=== PATIENT | male | born 1960 | race Caucasian/White ===

== ENCOUNTER 2017-06-21 23:29 | Emergency (ER) | payer MEDICARE, MEDICAID ==
[~2017-06-21] VITALS: Ht 165.1 cm; Wt 75.0 kg
[~2017-06-21 23:29] MED LIST: AMLO5TAB2 PO; AZEL137S11 NS; CEPH-512 PO; CLIN-77 PO; ELET40TA9 PO; FLUN25SP NS; OXYC-474 PO; RANI150C4 PO
[2017-06-21 23:39] VITALS: BP 179/106; PULSE 81; RESP 18; O2SAT 96
[2017-06-22 00:03] LABS: BASOPHILS % (AUTO) 0.4 % (0-3); EOSINOPHILS % (AUTO) 1.7 % (0-5); MONOCYTES % (AUTO) 8.6 % (4-12); Mean Corpuscular Hemoglobin 30.6 pg (27.0-35.0); Mean Corpuscular Volume 88.4 fL (81-100); NEUTROPHILS % (AUTO) 80.7 % (40-74); Platelet Count 270 bil/L (150-400)
--- NOTE | 2017-06-22 00:35 | ED.REPORT ---
HPI-Abd Pain M 40 and Over Date of Service Jun 22, 2017 ED Provider: Anthony Hampton MD This is a 56 year old male with past medical history of lumbar fusion, neurogenic bladder and hypertension, who presents the the emergency department for vomiting. Patient reports he's been having vomiting 4-5 times daily for the last 2 weeks. He reports this occurs whenever he gets very nauseated and vomits every time he eats. He feels fine without eating. He denies any blood in his vomit. He has associated abdominal pain which he says he feels all throughout his abdomen except for the center. He said 2 weeks ago he had a UTI and was given ciprofloxacin for 5 days. Patient has been using self catheter for last 15 years for neurogenic bladder. Patient said he did have some chest pain with difficulty breathing that went away after burping. He reports feeling much more gassy than usual. He denies fevers, chills, diarrhea. He has a history of kidney stones, but mentions this does not feel similar. He went to [facility] 2 days ago for the same and said they gave him 2 bags of fluid while he was there. Nursing Notes Stated Complaint: ABDOMINAL PAIN/TROUBLE BREATHING Chief Complaint: Male Abdominal Pain Nursing Notes Reviewed: Yes Allergies: Coded Allergies: Sulfa (Sulfonamide Antibiotics) (Verified Allergy, Severe, 08/17/16) methadone (Verified Allergy, Intermediate, VISION BLURRY, 08/17/16) barium iodide (Verified Allergy, Unknown, VOMITING, 08/17/16) gabapentin (Verified Adverse Reaction, Intermediate, "IT MADE MY HEAD WEIRD", 08/17/16) Scheduled Amlodipine (Amlodipine) 5 Mg Tablet 5 MG PO DAILY Cefuroxime Axetil (Cefuroxime) 500 Mg Tablet 500 MG PO BID Cephalexin (Keflex) 500 Mg Capsule 1,000 MG PO Q12H Clindamycin (Clindamycin) 150 Mg Capsule 450 MG PO Q8H Ranitidine (Ranitidine) 150 Mg Capsule 150 MG PO DAILY Scheduled PRN Eletriptan HBr (Relpax) 40 Mg Tablet 40 MG PO PRN Headache Oxycodone (Roxicodone) 5 Mg Tablet 10 MG PO Q6H PRN PRN For Pain Miscellaneous Medications Azelastine HCl (Azelastine HCl) 137 Mcg/0.137 Ml [place].pump 137 MCG NS Flunisolide (Flunisolide) 25 Ml [place] 25 ML NS General Time Seen by MD: 00:05 Chief Complaint Other (Vomiting) Hx Obtained From: Patient Sudden in Onset?: No Past Medical History Past Medical History Neurogenic Bladder Chronic Back pain Hypertension Past Surgical History Multiple back surgeries with spinal fusion Smoking History Never Smoker Social History Alcohol Use: "Social" Drug Use: THC Review of Systems Constitutional: Denies: Chills, Fever Respiratory: Reports: Shortness of breath Cardiovascular: Reports: Chest pain GI: Reports: Abdominal pain, Nausea, Vomiting, Denies: Diarrhea, Hematemesis, Melena Male: Reports Incontinence (Patient with neurogenic bladder, self caths) Musculoskeletal: Reports: Back pain (chronic) Complete sys rev & neg: except as marked. Physical Exam Initial Vital Signs Vital Signs (First) Date Time Temp Pulse Resp B/P Pulse Ox O2 Delivery O2 Flow Rate FiO2 06/21/17 23:39 36.6 81 18 179/106 96 Room Air Initial VS: Reviewed Head / Eyes: Atraumatic, Normocephalic ENT: Mucous membranes moist, Conjunctiva normal, No scleral icterus Extremities: Vascular intact, Neuro intact, No swelling Skin: Warm, Dry, No cyanosis Neurologic: Alert, Oriented, Nonfocal Psychiatric: Mood/affect normal, Behavior normal, Normal thought content General/Constitutional: Awake, Alert, No acute distress, Not toxic appearing Respiratory / Chest: Breath sounds NL, Breath sounds = bilat, No respiratory distress, No rales Cardiovascular: Heart rate NL, Regular rhythm, Heart sounds NL, No murmurs Abdomen: McBurney's non-tender, BS normoactive Tenderness/Guarding/Rebound: Positive: Tender LLQ... (Mild), Tender LUQ... ( Moderate) Negative Ethel sign Interpretation & Diagnostics Lab Results Interpretation Result Diagram: 06/21/17 2345 06/21/17 2345 Test 06/21/17 23:45 06/22/17 01:35 White Blood Count 8.3th/mm3 (3.8-10.1) Red Blood Count 4.90mil/mm3 (4.40-5.80) Hemoglobin 15.0g/dL (13.8-17.2) Hematocrit 43.3% (41.0-50.0) Mean Corpuscular Volume 88.4fL (81-100) Mean Corpuscular Hemoglobin 30.6pg (27.0-35.0) Mean Corpuscular Hemoglobin Concent 34.6% (32.0-37.0) Red Cell Distribution Width 13.2% (12.3-15.4) Platelet Count 270bil/L (150-400) Neutrophils (%) (Auto) 80.7% (40-74) Lymphocytes (%) (Auto) 8.5% (14-46) Monocytes (%) (Auto) 8.6% (4-12) Eosinophils (%) (Auto) 1.7% (0-5) Basophils (%) (Auto) 0.4% (0-3) Hold Purple Top Tube Received (Received) Hold Blue Top Tube Received (Received) Sodium Level 143mEq/L (134-144) Potassium Level 3.7mEq/L (3.5-5.2) Chloride Level 104mEq/L (97-108) Carbon Dioxide Level 20mmol/L (18-29) Blood Urea Nitrogen 12mg/dL (6-24) Creatinine 0.81mg/dL (0.76-1.27) Estimat Glomerular Filtration Rate 105mL/min (>59) Glucose Level 121mg/dL (60-99) Lactic Acid Level 1.6mmol/L (0.4-2.0) Calcium Level 9.7mg/dL (8.5-10.1) Total Bilirubin 1.8mg/dL (0.0-1.2) Aspartate Amino Transf (AST/SGOT) 19U/L (0-50) Alanine Aminotransferase (ALT/SGPT) 20U/L (0-44) Alkaline Phosphatase 70U/L (25-150) Total Protein 7.2g/dL (6.4-8.4) Albumin 4.6g/dL (3.4-5.0) Lipase 63U/L (13-60) Hold [place] Top Tube Received (Received) Hold [place] Top Tube Received (Received) Urine Color Dark yellow (YELLOW) Urine Appearance Cloudy (CLEAR,HAZY) Urine pH 5.5 (5.0-8.0) Urine Specific Depue 1.035 (1.003-1.035) Urine Protein Tracemg/dL (NEG,TRACE) Urine Glucose (UA) Negativemg/dL (NEGATIVE) Urine Ketones Negativemg/dL (NEGATIVE) Urine Occult Blood Negative (NEGATIVE) Urine Nitrite Negative (NEGATIVE) Urine Bilirubin Negative (NEGATIVE) Urine Urobilinogen Normalmg/dL (NORMAL) Urine Leukocyte Esterase Small (NEGATIVE) Urine RBC 0-2/hpf (0-2) Urine WBC >50/hpf (0-5) Urine Epithelial Cells Many/hpf (NONE-MOD) Urine Crystals None seen (NONE SEEN) Urine Bacteria Moderate/hpf (NONE-FEW) Urine Hyaline Casts None/lpf (NONE) Urine Granular Casts None seen (NONE SEEN) Urine Waxy Casts None seen (NONE SEEN) Urine Red Blood Cell Casts None seen (NONE SEEN) Urine White Blood Cell Casts None seen (NONE SEEN) Urine Mucus Present (None Seen) Urine Trichomonas None seen (NONE SEEN) Urine Yeast None (NONE SEEN) Urinalysis Comment None Urine Culture Reflexed Indicated Re-Eval/Medical Decision Med Decision/Clinical Course This is a 56 year old male with past medical history of lumbar fusion, neurogenic bladder and hypertension, who presents the the emergency department for vomiting and abdominal pain for the last couple of weeks. Symptoms are exacerbated with food. On exam, patient had moderate left upper quadrant tenderness. CBC, CMP and lipase unremarkable except for mildly elevated total bilirubin of 1.8. ALT, AST and alkaline phosphatase within normal limits. UA shows WBC > 50 and many bacteria. Patient does not seem to have an emergent cause for his pain, but rather UA consistent with UTI. Immediate abdominal ultrasound for cholecystitis not indicated as patient is not having RUQ pain, has negative Shipman's sign and has normal labs. If this doesn't resolve, outpatient imaging may be necessary. Recommend follow up with PCP within the next week. Patient was given IV protonix, 2g IV rocephin and 1L NS in the ED. He should continue antibiotics for 2 weeks. Counseled Regarding: Diagnosis, Lab results, Need for follow-up, When/why to return to ED Discharge & Departure Primary Impression: UTI (urinary tract infection) Urinary tract infection type: acute cystitis Hematuria presence: without hematuria Qualified Code: N30.00 - Acute cystitis without hematuria Disposition: Home Vital Signs - All Vital Signs Date Time Temp Pulse Resp B/P Pulse Ox O2 Delivery O2 Flow Rate FiO2 06/22/17 03:01 74 16 168/107 97 06/21/17 23:39 36.6 81 18 179/106 96 Room Air )( All Prior VS Reviewed: Yes Condition: Stable Patient Instructions: Urinary Tract Infection in Men (ED) Additional Instructions: You have a urinary tract infection based off of urine analysis. You should take antibiotics for 2 weeks as prescribed. If you start to develop fevers ( temperature greater than 100.4 F) associated with your symptoms, or if you see blood in your stool or vomit, return back to the emergency department. Referrals: Tyrel Vazquez MD (PCP) Attending Statement The patient was seen and examined together with Dr. Moy, and I agree with the history, exam and plan as outlined in the note above. copies to: Tyrel Vazquez MD, Malik A DO Jun 22, 2017 00:35 Anthony Hampton MD Jun 22, 2017 04:46
[2017-06-22] MEDS ORDERED: Pantoprazole 4 mg/mL 10 mL Inj IVPUSH ONE (01:05)
[2017-06-22] MEDS ORDERED: 0.9% Sodium Chloride 1,000 ML IV ONE (01:05)
[2017-06-22] MEDS ORDERED: HYDROmorphone 0.5 mg/0.5 mL iSecure Syringe IVPUSH PRN (01:05)
[2017-06-22 01:45] LABS: APPEARANCE,URINE CLOUDY (CLEAR,HAZY); COLOR,URINE DARK YELLOW (YELLOW); OCCULT BLOOD,URINE NEGATIVE (NEGATIVE); PH,URINE 5.5 (5.0-8.0); UROBILINOGEN,URINE NORMAL (NORMAL)
[2017-06-22] MEDS ORDERED: cefTRIAXone Inj 2,000 MG in Dextrose 5% Minibag Plus 50 ML IV ONE (02:05)
[2017-06-22] MEDS ORDERED: CEFU500T61 PO (02:51)
[2017-06-22 03:01] VITALS: BP 168/107; PULSE 74; RESP 16; O2SAT 97
[2017-06-23] MEDS ORDERED: ONDA4TAB12 SL (11:16)
== END 2017-06-22 03:02 | disposition home or self-care (01) ==
LOC: SED 23:29
DX: N30.00 Acute cystitis without hematuria (principal); I10 Essential (primary) hypertension; Z98.890 Other specified postprocedural states; Z88.2 Allergy status to sulfonamides; Z88.5 Allergy status to narcotic agent; Z88.8 Allergy status to other drugs, medicaments and biological substances
CPT/HCPCS: 36415; 80053; 81000; 83605; 83690; 85025; 87086; 96361; 96365; 96375; 99285; J0696; J7030; S0164

== ENCOUNTER 2017-06-23 08:58 | Observation (INO) | payer MEDICARE, MEDICAID ==
[~2017-06-23] VITALS: Ht 165.1 cm; Wt 71.5 kg
[~2017-06-23 08:58] MED LIST changes: +CEFU500T61 PO
[2017-06-23 09:11] VITALS: BP 181/122; PULSE 79; RESP 18; O2SAT 100
--- NOTE | 2017-06-23 09:27 | ED.REPORT ---
[facility]-General Illness Date of Service Jun 23, 2017 ED Provider: Mundo Luna MD Pt is a 56 y/o male w/ a hx of neurogenic bladder and recurrent UTIs, HTN, chronic back pain, presenting to the ED c/o recurrence of nausea and vomiting. The patient has been vomiting 4-5 times daily for the last 4 weeks after eating. He feels fine when he isn't eating. Pt c/o associated mild diffuse abdominal pain. The patient has been using a self catheter for the last 15 years for neurogenic bladder and does get recurrent UTIs. He denies fevers, chills, diarrhea. hematemesis. The patient was last seen here on 06/21/17 at which time lab studies were obtained and demonstrated CBC with stable HCT and no leukocytosis. CMP was unremarkable though total bilirubin was mildly elevated at 1.8. Lipase was not significantly elevated. UA showed >50 WBC and many bacteria and therefore he was started on Cefuroxime after being given 1g of Rocephin in the ED. He saw his PCP yesterday and has been seen at [facility] for this twice within the past week. The patient's constant vomiting after eating or drinking has caused him to be so weak he is unable to walk. He has no prior diagnosis of gastroparesis. The patient takes 5 mg Oxycodone 1-2 TID-QID. He is able to pass gas although his last BM was yesterday only a small amount of diarrhea. The patient does smoke marijuana regularly but he stopped after being told to by providers at [facility] a few days ago. The patient had an abd/pelvis CT scan at [facility] which was reportedly negative. Nursing Notes Stated Complaint: VOMITING Chief Complaint: Male Abdominal Pain Nursing Notes Reviewed: Yes Allergies: Coded Allergies: Sulfa (Sulfonamide Antibiotics) (Verified Allergy, Severe, 08/17/16) methadone (Verified Allergy, Intermediate, VISION BLURRY, 08/17/16) barium iodide (Verified Allergy, Unknown, VOMITING, 08/17/16) gabapentin (Verified Adverse Reaction, Intermediate, "IT MADE MY HEAD WEIRD", 08/17/16) Scheduled Amlodipine (Amlodipine) 5 Mg Tablet 5 MG PO DAILY Cefuroxime Axetil (Cefuroxime) 500 Mg Tablet 500 MG PO BID Scheduled PRN Eletriptan HBr (Relpax) 40 Mg Tablet 40 MG PO PRN Headache Ondansetron ODT (Ondansetron ODT) 4 Mg Tab.rapdis 4 MG SL Q4-6H PRN PRN For Nausea Oxycodone (Roxicodone) 5 Mg Tablet 10 MG PO Q6H PRN PRN For Pain Miscellaneous Medications Azelastine HCl (Azelastine HCl) 137 Mcg/0.137 Ml [place].pump 137 MCG NS Flunisolide (Flunisolide) 25 Ml [place] 25 ML NS General Time Seen by MD: 09:25 Chief Complaint Vomiting Hx Obtained From: Patient Arrived By: Walk-in Onset Occurred: More than a week ago... (2 weeks) Symptom Duration: Intermittent Location: : Abdomen Quality: Aching Radiation: : Does not radiate Severity: Current: Mild Severity: Maximum: Mild Recent Healthcare: Recent doctor visit, Recent testing, Previous diagnosis, Prior workup Similar Sx Previous: Yes Past Medical History Past Medical History Neurogenic Bladder Chronic Back pain Hypertension Past Surgical History Multiple back surgeries with spinal fusion Smoking History Never Smoker Social History Alcohol Use: "Social" Drug Use: THC Ambulatory Status Independent Review of Systems Full Review of Systems Constitutional: Reports: Weakness - generalized, Denies: Chills, Fever GI: Reports: Abdominal pain, Diarrhea, Nausea, Vomiting, Denies: Hematemesis Complete sys rev & neg: except as marked. Physical Exam Vital Signs Vital Signs Date Time Temp Pulse Resp B/P Pulse Ox O2 Delivery O2 Flow Rate FiO2 06/23/17 11:36 36.8 91 16 145/89 98 Room Air 06/23/17 10:56 36.8 84 16 156/111 99 Room Air 06/23/17 09:11 36.8 79 18 181/122 100 Room Air Initial VS: Reviewed, Vital signs abnormal Head / Eyes: Atraumatic, Normocephalic ENT: Mucous membranes moist, Conjunctiva normal Neck: Full range of motion Respiratory: Breath sounds normal, Clear to auscultation, No respiratory distress Cardiovascular: Regular rate & rhythm, Heart sounds normal, Intact distal pulses Extremities: Vascular intact, Neuro intact, No swelling Skin: Warm, Dry, No cyanosis Neurologic: Alert, Oriented, Nonfocal Psychiatric: Mood/affect normal, Behavior normal, Normal thought content General/Constitutional: Awake, Alert, No acute distress, Cooperative, Not toxic appearing Appearance / Presentation: Positive: Ill appearing/not toxic, Uncomfortable Abdomen: Atraumatic, Soft, No guarding, No rebound, No distention, No palpable mass Tenderness/Guarding/Rebound: Positive: Tender diffuse (mild) Interpretation & Diagnostics Lab Results Interpretation Result Diagram: 06/23/17 0941 06/23/17 0941 Test 06/23/17 09:41 White Blood Count 8.5th/mm3 (3.8-10.1) Red Blood Count 4.96mil/mm3 (4.40-5.80) Hemoglobin 15.4g/dL (13.8-17.2) Hematocrit 44.4% (41.0-50.0) Mean Corpuscular Volume 89.5fL (81-100) Mean Corpuscular Hemoglobin 31.0pg (27.0-35.0) Mean Corpuscular Hemoglobin Concent 34.7% (32.0-37.0) Red Cell Distribution Width 12.9% (12.3-15.4) Platelet Count 266bil/L (150-400) Neutrophils (%) (Auto) 84.1% (40-74) Lymphocytes (%) (Auto) 7.8% (14-46) Monocytes (%) (Auto) 6.3% (4-12) Eosinophils (%) (Auto) 0.9% (0-5) Basophils (%) (Auto) 0.5% (0-3) Sodium Level 143mEq/L (134-144) Potassium Level 3.7mEq/L (3.5-5.2) Chloride Level 102mEq/L (97-108) Carbon Dioxide Level 18mmol/L (18-29) Blood Urea Nitrogen 11mg/dL (6-24) Creatinine 0.92mg/dL (0.76-1.27) Estimat Glomerular Filtration Rate 90mL/min (>59) Glucose Level 133mg/dL (60-99) Lactic Acid Level 3.8mmol/L (0.4-2.0) Calcium Level 10.0mg/dL (8.5-10.1) Magnesium Level 1.9mg/dL (1.6-2.6) Total Bilirubin 2.0mg/dL (0.0-1.2) Aspartate Amino Transf (AST/SGOT) 23U/L (0-50) Alanine Aminotransferase (ALT/SGPT) 27U/L (0-44) Alkaline Phosphatase 71U/L (25-150) Total Protein 7.5g/dL (6.4-8.4) Albumin 4.5g/dL (3.4-5.0) Lipase 57U/L (13-60) Re-Eval/Medical Decision Med Decision/Clinical Course Pt is a 56 y/o male w/ a hx of neurogenic bladder and recurrent UTIs, HTN, chronic back pain, presenting to the ED c/o recurrence of nausea and vomiting. The patient has been vomiting 4-5 times daily for the last 4 weeks after eating. He feels fine when he isn't eating. Pt c/o associated mild diffuse abdominal pain. The patient has been using a self catheter for the last 15 years for neurogenic bladder and does get recurrent UTIs. He denies fevers, chills, diarrhea. hematemesis. The patient was last seen here on 06/21/17 at which time lab studies were obtained and demonstrated CBC with stable HCT and no leukocytosis. CMP was unremarkable though total bilirubin was mildly elevated at 1.8. Lipase was not significantly elevated. UA showed >50 WBC and many bacteria and therefore he was started on Cefuroxime after being given 1g of Rocephin in the ED. He saw his PCP yesterday and has been seen at [facility] for this twice within the past week. The patient's constant vomiting after eating or drinking has caused him to be so weak he is unable to walk. He has no prior diagnosis of gastroparesis. The patient takes 5 mg Oxycodone 1-2 TID-QID. He is able to pass gas although his last BM was yesterday only a small amount of diarrhea. The patient does smoke marijuana regularly but he stopped after being told to by providers at [facility] a few days ago. The patient had an abd/pelvis CT scan at [facility] which was reportedly negative. Here in the emergency department the patient is somewhat chronically ill- appearing and is constantly retching into an emesis bag. His abdominal examination reveals no guarding or rigidity and bowel sounds are present. Obtained records from [facility] recent visit dated 06/02/17 presented similar complaints of nausea and vomiting. CT scan at that time evidence of diverticular disease without diverticulitis and bladder wall thickening. Remainder of that CT scan reported as unremarkable. Meds given: IVF, Zofran, Haldol 2 mg IV Labs notable as below: CBC: Unremarkable CMP: unremarkable Total bilirubin of 2.0 Lactic acid elevated at 3.8 Thereafter, patient reported improvement in his symptoms though stated he was not comfortable going home, that he would be back in the emergency department again and that he needed to be admitted to the hospital until he could keep down food and fluids. Patient was discussed with admitting hospitalist and we discussed the patient's desire to be admitted to the hospital. We have even and several antiemetics and IV fluids here in the emergency department continues to state that he is severely nauseated and he does not feel comfortable going home. I have reviewed his outpatient records and I see no indication to repeat his CT scan today. His presentation is most consistent with cannabis hyperemesis syndrome though I also suspect that there is a degree of decreased gastric emptying due to his chronic oxycodone use. There are no findings suggestive of any acute surgical process or small bowel obstruction and I do not feel that repeat imaging studies are not immediately indicated. He does have elevated lactic acid which is consistent with dehydration. While we are reluctant to admit this gentleman he is strongly requesting to be admitted and has had multiple recent ER visits. He will therefore be admitted for further observation, treatment of his nausea and vomiting and IV fluids. I have counseled him to stop smoking marijuana and that he would likely benefit from managing his chronic pain with non-opiate modalities. Patient was transferred in stable condition. Time of Eval: 10:15 Re-Evaluation/Progress Note: The patient is requesting to be admitted as he feels he is too weak at this point to perform regular tasks and because he can't eat. Time of Eval: 11:11 Re-Evaluation/Progress Note: Pt rechecked. Feeling a little bit better after Haldol. Will try PO trial. Discussed consult with hospitalist. Consultation #1: Referral / Consult Name: Virgil Fish Consulted With: Hospitalist Call Returned at: 10:39 [employer] Librarian: Agrees with eval, Agrees with plan Note: Declines admission at this time. Requests we attempt to PO challenge the patient. If fails then will admit. Consultation #2: Referral / Consult Name: Virgil Fish Consulted With: Hospitalist Call Returned at: 11:28 [employer] Librarian: Will see patient, Agrees with eval, Agrees with plan, Accepts admit Counseled Regarding: Diagnosis, Lab results, Need for admission Discharge & Departure Primary Impression: Nausea and vomiting Vomiting type: cyclical vomiting Vomiting Intractability: unspecified Qualified Code: G43.A0 - Cyclical vomiting, not intractable Additional Impressions: Failure of outpatient treatment Elevated lactic acid level Dehydration Disposition: ADMITTED TO HOSPITAL Discharge Condition All VS Reviewed: Yes Condition: Stable Referrals: Tyrel Vazquez MD (PCP) Scribe Attestation Portions of this note were transcribed by Kevon Dominguez. I, Dr. Luna personally performed the history, physical exam and medical decision-making; I reviewed and confirmed the accuracy of the information in the transcribed note. copies to: Tyrel Vazquez MD, Beck O MD Jun 23, 2017 09:27 KEVON DOMINGUEZ Jun 23, 2017 09:48
[2017-06-23] MEDS ORDERED: 0.9% Sodium Chloride 1,000 ML IV ONE ×2 (09:41→14:10)
[2017-06-23] MEDS ORDERED: Ondansetron 2 mg/mL 2 mL Inj IVPUSH ONE (09:45)
[2017-06-23] MEDS ORDERED: Haloperidol 5 mg/mL Inj IVPUSH ONE (10:20)
[2017-06-23] MEDS ORDERED: Alum-Mag Hydrox-Simeth 30 mL Suspension PO PRN ×2 (10:20→14:10)
[2017-06-23 10:30] LABS: BASOPHILS % (AUTO) 0.5 % (0-3); EOSINOPHILS % (AUTO) 0.9 % (0-5); MONOCYTES % (AUTO) 6.3 % (4-12); Mean Corpuscular Volume 89.5 fL (81-100); NEUTROPHILS % (AUTO) 84.1 % (40-74); Platelet Count 266 bil/L (150-400)
[2017-06-23 10:56] VITALS: BP 156/111; PULSE 84; RESP 16; O2SAT 99
[2017-06-23 10:59] LABS: Magnesium 1.9 mg/dL (1.6-2.6)
[2017-06-23] MEDS ORDERED: ONDA4TAB12 SL (11:16)
[2017-06-23 11:36] VITALS: BP 145/89; PULSE 91; RESP 16; O2SAT 98
[2017-06-23] MEDS ORDERED: MetoCLOpramide 5 mg/mL 2 mL Inj IVPUSH PRN (11:55)
[2017-06-23 12:10] VITALS: BP 145/89; PULSE 91; RESP 16; O2SAT 98
--- NOTE | 2017-06-23 13:15 | NUR ---
Admit to room 250-1 Pt arrived via stretcher. able to stand and transfer into bed indep Arrived at 1215. SO at bedside. 1235 pt went to bathroom and straight cathed self with 14f straight cath, produced 500 ml jass urine. Ordered 14f coude from central supply for future straight caths. Addendum: 06/23/17 at 1406 by MILDRED YAP RN notified of arrival on floor 1315
[2017-06-23] MEDS ORDERED: Ondansetron 2 mg/mL 2 mL Inj IVPUSH PRN (14:10)
[2017-06-23] MEDS ORDERED: Polyethylene Glycol (PEG) 17 Gm Powder PO PRN (14:10)
--- NOTE | 2017-06-23 14:22 | PCM.HPMED ---
Subjective Date of Service Jun 23, 2017 Primary Provider: Admitting Physician: Virgil Fish Primary Care Physician: Tyrel Vazquez MD Attending Physician: Virgil Fish Chief Complaint: nausea, vomiting History of Present Illness: 56 year old male with history of hypertension, chronic back pain and degenerative disk disease with multiple back surgeries as well as chronic neurogenic bladder (presumably due to his degenerative disk disease) requiring self-cath and recurrent UTIs as a result presents with complaint of intractable nausea and vomiting. He says his symptoms started about 4 weeks ago but seemed to subside for about couple of weeks before becoming severely worse over the past 4-5 days. He used to smoke marijuana but says stopped smoking about one week ago after he was told it may be contributing to his symptoms. He has been seen in the ED 3 times over the past 4 days (at [facility] initially and twice at our ED). He also saw his PCP who apparently started him on antibiotics for presumed UTI. He denies any prior such episodes with prior UTI's or any history of GI issues. He denies any recent travel or sick contacts. He denies any focal abdominal pain although says has diffuse abdominal tenderness to palpation because of recurrent vomiting. He denies any hematemesis or coffee ground emesis. He denies any diarrhea or constipation although his last BM was 2 days ago. He denies any melena or hematochezia. He says vomiting occur only when he eats or drinks anything but his vomiting is fairly constant. He reports occasional chills after vomiting but no fever. He thinks he may have lost some weight in recent days. In ED he received 2mg of Haldol along with Zofran and says his nausea and vomiting seem much improved now. Review of Systems: Constitutional: Negative, except as otherwise mentioned in the history above. Ophthalmologic: Negative, except as otherwise mentioned in the history above. Cardiovascular: Negative, except as otherwise mentioned in the history above. Respiratory: Negative, except as otherwise mentioned in the history above. Gastrointestinal: Negative, except as otherwise mentioned in the history above. Genitourinary: Negative, except as otherwise mentioned in the history above. Musculoskeletal: Negative, except as otherwise mentioned in the history above. Neurological: Negative, except as otherwise mentioned in the history above. Psychiatric: Negative, except as otherwise mentioned in the history above. Hematologic/Lymphatic: Negative, except as otherwise mentioned in the history above. Allergic/Immunologic: Negative, except as otherwise mentioned in the history above. Allergies Coded Allergies: Sulfa (Sulfonamide Antibiotics) (Verified Allergy, Severe, 08/17/16) methadone (Verified Allergy, Intermediate, VISION BLURRY, 08/17/16) barium iodide (Verified Allergy, Unknown, VOMITING, 08/17/16) gabapentin (Verified Adverse Reaction, Intermediate, "IT MADE MY HEAD WEIRD", 08/17/16) Home Medications Cefuroxime Axetil 500 Mg PO BID Amlodipine 5 Mg PO DAILY Eletriptan HBr 40 Mg PO PRN Headache Oxycodone 10 Mg PO Q6H PRN Azelastine HCl 137 Mcg NS Flunisolide 25 Ml NS Ondansetron ODT 4 Mg SL Q4-6H PRN Exam Vital Signs & I/O Vital Sign- Last 8 Hours Date Time Temp Pulse Resp B/P Pulse Ox O2 Delivery O2 Flow Rate FiO2 06/23/17 12:10 36.8 91 16 145/89 98 Room Air 06/23/17 11:36 36.8 91 16 145/89 98 Room Air 06/23/17 10:56 36.8 84 16 156/111 99 Room Air 06/23/17 09:11 36.8 79 18 181/122 100 Room Air Lab & Micro Results Laboratory Tests Test 06/23/17 09:41 White Blood Count 8.5th/mm3 (3.8-10.1) Red Blood Count 4.96mil/mm3 (4.40-5.80) Hemoglobin 15.4g/dL (13.8-17.2) Hematocrit 44.4% (41.0-50.0) Mean Corpuscular Volume 89.5fL (81-100) Mean Corpuscular Hemoglobin 31.0pg (27.0-35.0) Mean Corpuscular Hemoglobin Concent 34.7% (32.0-37.0) Red Cell Distribution Width 12.9% (12.3-15.4) Platelet Count 266bil/L (150-400) Neutrophils (%) (Auto) 84.1% (40-74) Lymphocytes (%) (Auto) 7.8% (14-46) Monocytes (%) (Auto) 6.3% (4-12) Eosinophils (%) (Auto) 0.9% (0-5) Basophils (%) (Auto) 0.5% (0-3) Sodium Level 143mEq/L (134-144) Potassium Level 3.7mEq/L (3.5-5.2) Chloride Level 102mEq/L (97-108) Carbon Dioxide Level 18mmol/L (18-29) Blood Urea Nitrogen 11mg/dL (6-24) Creatinine 0.92mg/dL (0.76-1.27) Estimat Glomerular Filtration Rate 90mL/min (>59) Glucose Level 133mg/dL (60-99) Lactic Acid Level 3.8mmol/L (0.4-2.0) Calcium Level 10.0mg/dL (8.5-10.1) Magnesium Level 1.9mg/dL (1.6-2.6) Total Bilirubin 2.0mg/dL (0.0-1.2) Aspartate Amino Transf (AST/SGOT) 23U/L (0-50) Alanine Aminotransferase (ALT/SGPT) 27U/L (0-44) Alkaline Phosphatase 71U/L (25-150) Total Protein 7.5g/dL (6.4-8.4) Albumin 4.5g/dL (3.4-5.0) Lipase 57U/L (13-60) Result Diagram: 06/23/1741 06/23/17 0941 PMH Hypertension, Chronic back pain Degenerative disk disease Neurogenic bladder (presumably due to his degenerative disk disease) requiring self-cath Recurrent UTIs Surgical History Multiple back surgeries Family History Two uncles with heart disease. Father in his 70's from unknown cancer. Mother has skin cancer Social History Hx Alcohol Use: Yes (VERY RARE) Hx Substance Use: Yes (marijuana) Smoking Status: Never Smoker Exam Vital Signs Vital Sign - Last Date Time Temp Pulse Resp B/P Pulse Ox O2 Delivery O2 Flow Rate FiO2 06/23/17 12:10 36.8 91 16 145/89 98 Room Air General: Alert, Oriented X3, Cooperative, No Acute Distress Head: Normal Eyes: PERRLA, EOMI, Scleral Anicteric Nose: Mucous Membr Moist/[place] Mouth: Mucous Membr Moist/[place] Neck: Supple Chest & Lungs: Chest Wall Normal, Clear to auscultation & percussion Cardiovascular: Regular Rate/Rhythm Pulses: NL carotid, radial, femoral, DP, PT Abdomen: Tender (mild and diffuse), Non-distended, Normoactive bowel tones, Soft Extremities: No cyanosis/clubbing/edma bilat Skin: Other (no ulcer/rash) Neurological: Grossly Neurologically Intact, Cranial Nerves 2-12 Intact, Normal Speech Lab and Diagnostics Result Diagram: 06/23/1741 06/23/17 0941 Assessment & Plan 56 year old male with history of hypertension, chronic back pain and degenerative disk disease with multiple back surgeries as well as chronic neurogenic bladder (presumably due to his degenerative disk disease) requiring self-cath and recurrent UTIs as a result presents with complaint of intractable nausea and vomiting. # Acute intractable nausea and vomiting, present on admission. - Unclear etiology. ? if due to gastroparesis - Per our ED report: "Obtained records from [facility] recent visit dated 06/02/17 presented similar complaints of nausea and vomiting. CT scan at that time evidence of diverticular disease without diverticulitis and bladder wall thickening. Remainder of that CT scan reported as unremarkable." - If symptoms persist here will consider repeating CT - For now continue with supportive care including IVF, anti-emetics, and pain control with IV Morphine as needed - Start clear liquid diet and advance as tolerated - Consider GI consult vs gastric emptying study if symptoms do not improve # Acute lactic acid elevation, present on admission - Presumably from ongoing n/v - IVF and repeat labs to ensure resolution # Mildly elevated Bilirubin - Repeat CMP labs in AM # History of hypertension. - Continue with home dose Amlodipine # Chronic back pain - Continue with supportive care and home pain meds # History of neurogenic bladder - Continue with self cath # History of recurrent UTI's - Recheck UA to ensure UTI now contributing current symptoms. Expected length of hospital stay is less than 2 midnights and likely 1-2 days GI Prophylaxis: Proton Pump Inhibitor Resuscitation Status: CPR: Attempt Resuscitation (discussed and verified with patient) Virgil Fish Jun 23, 2017 14:22
--- NOTE | 2017-06-23 17:45 | NUR ---
Pt asking to discharge Pt had CL diet for lunch, caused some pain, discomfort in mid abd region, amb in halls and settled down. Had another chicken broth and pt reports no pain/discomfort after this. Suggested pt stay overnight to assess nausea. diet adv to MARTINEZ knapp and will continue to advance if tolerates for breakfast. pt agreed with plan, SO at bedside and aware.
--- NOTE | 2017-06-23 19:07 | NUR ---
ZOHRA explained and signed. Copy of ZOHRA and Medicare self administered medication information given to pt.
[2017-06-23 19:32] LABS: APPEARANCE,URINE CLEAR (CLEAR,HAZY); COLOR,URINE YELLOW (YELLOW); OCCULT BLOOD,URINE TRACE (NEGATIVE); PH,URINE 5.5 (5.0-8.0); UROBILINOGEN,URINE NORMAL (NORMAL)
[2017-06-23 19:56] VITALS: BP 151/96; PULSE 85; RESP 16; O2SAT 96
[2017-06-24 05:16] VITALS: BP 140/86; PULSE 83; RESP 17; O2SAT 96
--- NOTE | 2017-06-24 06:40 | NUR ---
Migraine Pt. c/o migraine upon shift start, paged, new order of prn imitrex administered,effective, pt. denies N/V/abd pain throughout the shift, c/o back pain, administered prn oxycodone with a state of relief, VSS afebrile, hourly checks and all needs attended.
[2017-06-24] MEDS ORDERED: Pantoprazole 40 mg ER24 Tablet PO SCH (07:30)
[2017-06-24 07:59] LABS: Magnesium 1.9 mg/dL (1.6-2.6)
--- NOTE | 2017-06-24 08:10 | PCM.DIMED ---
Discharge Instructions Date of Service Jun 24, 2017 Dates of Hospitalization Jun 23, 2017 at 11:53 Discharge Diagnosis Discharge Diagnosis # Acute intractable nausea and vomiting, present on admission. Resolved - Unclear etiology. # Acute lactic acid elevation, present on admission. resolved. # History of hypertension. Stable. # Chronic back pain. Stable. # History of neurogenic bladder. Stable. # History of recurrent urinary tract infections (UTI's). Urinalysis during this hospitalization without any evidence of active UTI Diet Discharge Diet: Low fat, Low Sodium, Heart Healthy Activity Discharge Activity: No restrictions Call your provider Call your provider for: Fever or Chills, Shortness of breath, Bleeding, Vomitting, Excessive diarrhea Patient Instructions Patient Instructions Seek immediate medical attention if any new or worsening signs or symptoms occur. Follow-up plan 1. Followup with primary care provider this coming week Follow-up Provider: Tyrel Vazquez MD, Masoud Jun 24, 2017 08:09
--- NOTE | 2017-06-24 08:13 | PCM.DC.MED ---
Discharge Summary Date of Service Jun 24, 2017 Dates of Hospitalization Date of Hospital Admission Jun 23, 2017 at 11:53 Date of Discharge: Jun 24, 2017 Providers: Admitting Physician: Virgil Fish Primary Care Physician: Tyrel Vazquez MD Attending Physician: Virgil Fish Diagnosis at Time of Discharge Diagnosis at Time of Discharge # Acute intractable nausea and vomiting, present on admission. Resolved - Unclear etiology. # Acute lactic acid elevation, present on admission. resolved. # History of hypertension. Stable. # Chronic back pain. Stable. # History of neurogenic bladder. Stable. # History of recurrent urinary tract infections (UTI's). Urinalysis during this hospitalization without any evidence of active UTI Brief History 56 year old male with history of hypertension, chronic back pain and degenerative disk disease with multiple back surgeries as well as chronic neurogenic bladder (presumably due to his degenerative disk disease) requiring self-cath and recurrent UTIs as a result presents with complaint of intractable nausea and vomiting. He says his symptoms started about 4 weeks ago but seemed to subside for about couple of weeks before becoming severely worse over the past 4-5 days. He used to smoke marijuana but says stopped smoking about one week ago after he was told it may be contributing to his symptoms. He has been seen in the ED 3 times over the past 4 days (at [facility] initially and twice at our ED). He also saw his PCP who apparently started him on antibiotics for presumed UTI. He denies any prior such episodes with prior UTI's or any history of GI issues. He denies any recent travel or sick contacts. He denies any focal abdominal pain although says has diffuse abdominal tenderness to palpation because of recurrent vomiting. He denies any hematemesis or coffee ground emesis. He denies any diarrhea or constipation although his last BM was 2 days ago. He denies any melena or hematochezia. He says vomiting occur only when he eats or drinks anything but his vomiting is fairly constant. He reports occasional chills after vomiting but no fever. He thinks he may have lost some weight in recent days. In ED he received 2mg of Haldol along with Zofran and says his nausea and vomiting seem much improved now. Hospital Course # Acute intractable nausea and vomiting, present on admission. - Unclear etiology. ? if due to gastroparesis - Symptoms resolved soon after admission and overnight patient was able to tolerate PO intake without any further nausea or vomiting. He is expressing readiness and eagerness to go home. # Acute lactic acid elevation, present on admission - Presumably from n/v - Resolved with IVF # Mildly elevated Bilirubin - Repeat CMP labs pending by time of discharge # History of hypertension. Stable - Continued with home dose Amlodipine # Chronic back pain. Stable. - Continued with supportive care and home pain meds # History of neurogenic bladder. Stable. - Continued with self cath # History of recurrent UTI's - UA during this hospitalization was negative. Exam Vital Signs (Last) Date Time Temp Pulse Resp B/P Pulse Ox O2 Delivery O2 Flow Rate FiO2 06/24/17 05:16 36.8 83 17 140/86 96 Room Air Exam Lungs CTA bilat. CV: RRR Abdomen: Soft, ND, +BS Test 06/23/17 09:41 06/23/17 14:28 06/23/17 19:19 06/24/17 06:34 White Blood Count 8.5th/mm3 (3.8-10.1) Red Blood Count 4.96mil/mm3 (4.40-5.80) Hemoglobin 15.4g/dL (13.8-17.2) Hematocrit 44.4% (41.0-50.0) Mean Corpuscular Volume 89.5fL (81-100) Mean Corpuscular Hemoglobin 31.0pg (27.0-35.0) Mean Corpuscular Hemoglobin Concent 34.7% (32.0-37.0) Red Cell Distribution Width 12.9% (12.3-15.4) Platelet Count 266bil/L (150-400) Neutrophils (%) (Auto) 84.1% (40-74) Lymphocytes (%) (Auto) 7.8% (14-46) Monocytes (%) (Auto) 6.3% (4-12) Eosinophils (%) (Auto) 0.9% (0-5) Basophils (%) (Auto) 0.5% (0-3) Lipase 57U/L (13-60) Lactic Acid Level 1.2mmol/L (0.4-2.0) Urine Color Yellow (YELLOW) Urine Appearance Clear (CLEAR,HAZY) Urine pH 5.5 (5.0-8.0) Urine Specific [place] 1.025 (1.003-1.035) Urine Protein Negativemg/dL (NEG,TRACE) Urine Glucose (UA) Negativemg/dL (NEGATIVE) Urine Ketones 15mg/dL (NEGATIVE) Urine Occult Blood Trace (NEGATIVE) Urine Nitrite Negative (NEGATIVE) Urine Bilirubin Negative (NEGATIVE) Urine Urobilinogen Normalmg/dL (NORMAL) Urine Leukocyte Esterase Negative (NEGATIVE) Urine RBC 0-2/hpf (0-2) Urine WBC 0-5/hpf (0-5) Urine Epithelial Cells Few/hpf (NONE-MOD) Urine Crystals None seen (NONE SEEN) Urine Bacteria Few/hpf (NONE-FEW) Urine Hyaline Casts None/lpf (NONE) Urine Granular Casts None seen (NONE SEEN) Urine Waxy Casts None seen (NONE SEEN) Urine Red Blood Cell Casts None seen (NONE SEEN) Urine White Blood Cell Casts None seen (NONE SEEN) Urine Mucus None seen (None Seen) Urine Trichomonas None seen (NONE SEEN) Urine Yeast None (NONE SEEN) Urinalysis Comment None Urine Culture Reflexed Not indicated Discharge Medications Discharge Medications Amlodipine (Amlodipine) 5 Mg Tablet 5 MG PO DAILY (Reported) As needed Eletriptan HBr (Relpax) 40 Mg Tablet 40 MG PO PRN Headache (Reported) Ondansetron ODT (Ondansetron ODT) 4 Mg Tab.rapdis 4 MG SL Q4-6H PRN PRN For Nausea (Reported) Oxycodone (Roxicodone) 5 Mg Tablet 10 MG PO Q6H PRN PRN For Pain (Reported) Miscellaneous Medications Azelastine HCl (Azelastine HCl) 137 Mcg/0.137 Ml [place].pump 137 MCG NS (Reported ) Flunisolide (Flunisolide) 25 Ml [place] 25 ML NS (Reported) Followup Plan Disposition: Home Follow-up plan 1. Followup with primary care provider this coming week Discharge Diet: Low fat, Low Sodium, Heart Healthy Discharge Activity: No restrictions Patient Instructions Seek immediate medical attention if any new or worsening signs or symptoms occur. Follow-up Provider: Tyrel Vazquez MD Time spent 25 min copies to: Tyrel Vazquez MD, Masoud Jun 24, 2017 08:13
--- NOTE | 2017-06-24 11:28 | NUR ---
Discharge: Patient discharged with family to home. He is feeling well today with no nausea. Able to eat a bland breakfast. No new prescriptions. Went over all discharge instructions, including a follow up PCP appt. and answered all questions. Discussed home monitoring of events/foods that may preceed nausea for prevention in the future.
== END 2017-06-24 11:00 | disposition home or self-care (01) ==
LOC: SED 08:58 → MOC 11:53
PROVIDERS: ADMIT Internal Medicine; ATTEND Internal Medicine
DX: G43.A0 Cyclical vomiting, in migraine, not intractable (principal); R74.0 Nonspecific elevation of levels of transaminase and lactic acid dehydrogenase [LDH]; I10 Essential (primary) hypertension; E86.0 Dehydration; N31.9 Neuromuscular dysfunction of bladder, unspecified; M54.9 Dorsalgia, unspecified; Z87.440 Personal history of urinary (tract) infections; Z88.2 Allergy status to sulfonamides; Z88.8 Allergy status to other drugs, medicaments and biological substances
CPT/HCPCS: 36415; 80053; 81000; 83605; 83690; 83735; 85025; 96361; 96374; 96375; 99285; G0378; J1630; J2270; J2405; J7030